=== PATIENT | male | born 1970 | race Caucasian/White ===

== ENCOUNTER 2024-04-02 16:16 | Emergency (ER) | payer OTHER ==
[2024-04-02] MEDS: Bacitracin Oint 1 GM U/D Packet TOP ONE (17:44)
[2024-04-02] MEDS: Lidocaine 1% 5 ML VIAL INJECT ONE (17:44)
== END 2024-04-02 17:52 | disposition home or self-care (01) ==
LOC: JP.ED 16:16
DX: S01.511A Laceration without foreign body of lip, initial encounter (principal); Z79.899 Other long term (current) drug therapy; Z90.49 Acquired absence of other specified parts of digestive tract; W26.8XXA Contact with other sharp object(s), not elsewhere classified, initial encounter
CPT/HCPCS: 12011; 99282